=== PATIENT | male | born 1930 | race Caucasian/White ===

== ENCOUNTER 2019-12-04 21:58 | Observation (INO) | payer MEDICARE, OTHER ==
[~2019-12-04 21:58] MED LIST: fentaNYL 100 MCG/2 ML SDV ONE
[2019-12-04] MEDS ORDERED: Ondansetron 4 MG/2 ML SDV IVPUSH PRN (22:07)
[2019-12-04] MEDS ORDERED: fentaNYL 100 MCG/2 ML SDV IVPUSH ONE (22:07)
[2019-12-04] MEDS ORDERED: Sodium Chloride 0.9% 1,000 ML IV ONE (22:09)
[2019-12-04] MEDS ORDERED: Morphine 4 MG/ML VIAL ONE (22:22)
[2019-12-04 22:32] LABS: CHLORIDE,CL 107 mEq/L (98-106); SODIUM,NA 148 mEq/L (136-145)
[2019-12-04] MEDS ORDERED: Morphine 10 MG/ML Syringe IVPUSH ONE (22:33)
[2019-12-04] MEDS ORDERED: Iopamidol 755 Mg/ML 100 ML Bottle IVPUSH ONE (22:39)
[2019-12-04] MEDS: Lactated Ringers 1,000 ML IV SCH (22:51)
--- NOTE | 2019-12-04 23:34 | EDM.PDOC ---
ED HPI GENERAL MEDICAL PROBLEM - General Chief Complaint: General Stated Complaint: abd pain Time Seen by Provider: 12/04/19 22:17 Source of Information: Reports: Patient History Limitations: Reports: No Limitations - History of Present Illness INITIAL COMMENTS - FREE TEXT/NARRATIVE: Elliott is an 89 yo male who presents to the ED via private vehicle with concerns of abdominal pain. States he did have an episode of vomiting yesterday evening. States he felt fine afterwards. Woke up this morning with an episode of diarrhea and afterwards felt fine. States he was fine through out the day today and had supper around 1730. States he ate hashbrowns and gravy. [place] fine till around 1930 when the pain came on suddenly and has progressively worsened thru out the night. Has had episodes of emesis tonight as well. Admits the pain is severe and unable to get comfortable. Duration: Getting Worse Location: Reports: Abdomen Quality: Reports: Sharp, Stabbing Associated Symptoms: Reports: Nausea/Vomiting Middle Epigastric Pain Score (Numeric/FACES): 10 - Related Data Allergies Allergy/AdvReac Type Severity Reaction Status Date / Time No Known Allergies Allergy Verified 12/04/19 22:06 Home Meds: Home Meds Finasteride 5 mg PO DAILY 05/29/15 [History] Omeprazole 20 mg PO DAILY 05/29/15 [History] Pravastatin [Pravachol] 40 mg PO DAILY 05/29/15 [History] Tamsulosin HCl 0.4 mg PO DAILY 05/29/15 [History] Verapamil HCl [Verapamil ER] 120 mg PO BID 05/29/15 [History] Warfarin Sodium 5 mg PO DAILY 05/29/15 [History] Past Medical History HEENT History: Reports: Hard of Hearing Cardiovascular History: Reports: Afib, High Cholesterol, Hypertension Gastrointestinal History: Reports: GERD Genitourinary History: Reports: BPH, Renal Calculus Musculoskeletal History: Reports: Back Pain, Chronic Hematologic History: Reports: Iron Deficiency Oncologic (Cancer) History: Reports: Other (See Below) Other Oncologic History: tonsil CA - Past Surgical History HEENT Surgical History: Reports: Cataract Surgery, Tonsillectomy GI Surgical History: Reports: Hernia, Inguinal Musculoskeletal Surgical History: Reports: Other (See Below) Other Musculoskeletal Surgeries/Procedures:: back surgery Social & Family History - Family History Family Medical History: Noncontributory - Tobacco Use Smoking Status *Q: Never Smoker Second Hand Smoke Exposure: No - Alcohol Use Alcohol Use History: Yes Alcohol Use Frequency: Rarely, Socially - Recreational Drug Use Recreational Drug Use: No - Living Situation & Occupation Living situation: Reports: Occupation: Retired ED ROS GENERAL - Review of Systems Review Of Systems: See Below Constitutional: Reports: Chills. Denies: Fever, Weakness, Fatigue HEENT: Reports: No Symptoms Respiratory: Reports: No Symptoms Cardiovascular: Reports: No Symptoms GI/Abdominal: Reports: Abdominal Pain, Diarrhea, Nausea, Vomiting. Denies: Black Stool, Bloody Stool, Distension, Hematochezia, Melena, Stool Incontinence : Reports: No Symptoms Musculoskeletal: Reports: No Symptoms Skin: Reports: No Symptoms Neurological: Reports: No Symptoms Psychiatric: Reports: No Symptoms ED EXAM, GENERAL - Physical Exam Exam: See Below Exam Limited By: No Limitations General Appearance: Alert, Moderate Distress (severe pain upon arrival) Ears: Normal External Exam, Hearing Loss Nose: Normal Inspection, No Blood Throat/Mouth: Normal Inspection, Normal Lips, Normal Voice, No Airway Compromise Head: Atraumatic, Normocephalic Neck: Normal Inspection, Supple Respiratory/Chest: No Respiratory Distress, Lungs Clear, Normal Breath Sounds Cardiovascular: No Murmur, Irregularly Irregular. No: Tachycardia GI/Abdominal: Normal Bowel Sounds, No Mass, Guarding, Tender. No: Hernia, Hepatomegaly, Splenomegaly Extremities: Normal Inspection, No Pedal Edema Neurological: Alert, Oriented, Normal Cognition, No Motor/Sensory Deficits Skin Exam: Warm, Dry, Intact, Normal Color, No Rash Course - Vital Signs Last Recorded V/S: Last Vital Signs Temp 99.1 F 12/04/19 22:46 Pulse 62 12/04/19 22:46 Resp 22 H 12/04/19 22:46 BP 162/91 H 12/04/19 22:46 Pulse Ox 99 12/04/19 22:46 - Orders/Labs/Meds Orders: Active Orders 24 hr Category Date Time Status Abdomen Ltd [US] Stat Exams 12/04/19 23:26 Taken Abdomen Pelvis w Cont [CT] Stat Exams 12/04/19 22:10 Taken Lactated Ringers [Ringers, Lactated] 1,000 ml Med 12/04/19 22:45 Active IV ASDIRECTED Ondansetron [Zofran] Med 12/04/19 22:07 Active 4 mg IVPUSH Q6H PRN Medication Orders Lactated Ringer's (Ringers, Lactated) 1,000 mls @ 100 mls/hr IV ASDIRECTED RODDY Last Admin: 12/04/19 22:51 Dose: 150 mls/hr Documented by: JEANNE Ondansetron HCl (Zofran) 4 mg IVPUSH Q6H PRN PRN Reason: Abdominal Pain Last Admin: 12/04/19 22:21 Dose: 4 mg Documented by: JEANNE Labs: Laboratory Tests 12/04/19 12/04/19 12/04/19 Range/Units 22:17 22:17 22:17 WBC 12.8 H (5.0-10.0) 10^3/uL RBC 4.86 (4.50-6.00) 10^6/uL Hgb 14.3 (14.0-18.0) g/dL Hct 41.9 (40.0-54.0) % MCV 86.2 (82.0-94.0) fL MCH 29.4 (27.0-32.0) pg MCHC 34.1 (33.0-38.0) g/dL RDW Coeff of Brett 13.9 (11.0-15.0) % Plt Count 257 (150-400) 10^3/uL Neut % (Auto) 88.2 H (35-85) % Lymph % (Auto) 7.8 L (10-55) % [place] % (Auto) 2.5 (0-16) % Eos % (Auto) 1.3 (0-5) % Baso % (Auto) 0.2 (0-3) % Neut # (Auto) 11.27 H (1.80-7.00) 10^3/uL Lymph # (Auto) 1.00 (1.00-4.80) 10^3/uL [place] # (Auto) 0.32 (0.00-0.80) 10^3/uL Eos # (Auto) 0.17 (0.00-0.45) 10^3/uL Baso # (Auto) 0.02 10^3/uL PT (9.7-12.3) SEC INR (0.92-1.18) Sodium 148 H (136-145) mEq/L Potassium 3.8 (3.5-5.0) mEq/L Chloride 107 H (98-106) mEq/L Carbon Dioxide 32 (21-32) mmol/L BUN 20 H (7-18) mg/dL Creatinine 1.2 (0.7-1.3) mg/dL Est Cr Clr Drug Dosing TNP Estimated GFR (MDRD) 57 L (>=60) mL/min Glucose 144 H (75-99) mg/dL Lactic Acid 1.3 (0.4-2.0) mmol/L Calcium 8.8 (8.4-10.1) mg/dL Total Bilirubin 1.2 H (0.0-1.0) mg/dL AST 56 H (15-37) U/L ALT 41 (12-78) U/L Alkaline Phosphatase 63 (46-116) U/L C-Reactive Protein 0.7 (0.2-0.8) mg/dL Total Protein 6.7 (6.4-8.2) g/dL Albumin 3.8 (3.4-5.0) g/dL Amylase 32 (25-115) U/L Lipase 115 (73-393) U/L /12/16 Range/Units 22:17 WBC (5.0-10.0) 10^3/uL RBC (4.50-6.00) 10^6/uL Hgb (14.0-18.0) g/dL Hct (40.0-54.0) % MCV (82.0-94.0) fL MCH (27.0-32.0) pg MCHC (33.0-38.0) g/dL RDW Coeff of Brett (11.0-15.0) % Plt Count (150-400) 10^3/uL Neut % (Auto) (35-85) % Lymph % (Auto) (10-55) % [place] % (Auto) (0-16) % Eos % (Auto) (0-5) % Baso % (Auto) (0-3) % Neut # (Auto) (1.80-7.00) 10^3/uL Lymph # (Auto) (1.00-4.80) 10^3/uL [place] # (Auto) (0.00-0.80) 10^3/uL Eos # (Auto) (0.00-0.45) 10^3/uL Baso # (Auto) 10^3/uL PT 22.9 H (9.7-12.3) SEC INR 2.29 H (0.92-1.18) Sodium (136-145) mEq/L Potassium (3.5-5.0) mEq/L Chloride (98-106) mEq/L Carbon Dioxide (21-32) mmol/L BUN (7-18) mg/dL Creatinine (0.7-1.3) mg/dL Est Cr Clr Drug Dosing Estimated GFR (MDRD) (>=60) mL/min Glucose (75-99) mg/dL Lactic Acid (0.4-2.0) mmol/L Calcium (8.4-10.1) mg/dL Total Bilirubin (0.0-1.0) mg/dL AST (15-37) U/L ALT (12-78) U/L Alkaline Phosphatase (46-116) U/L C-Reactive Protein (0.2-0.8) mg/dL Total Protein (6.4-8.2) g/dL Albumin (3.4-5.0) g/dL Amylase (25-115) U/L Lipase (73-393) U/L Meds: Medications Generic Name Dose Route Start Last Admin Trade Name Freq PRN Reason Stop Dose Admin Lactated Ringer's 1,000 mls @ 100 mls/hr 12/04/19 22:45 12/04/19 22:51 Ringers, Lactated IV 150 mls/hr ASDIRECTED RODDY Administration Ondansetron HCl 4 mg 12/04/19 22:07 12/04/19 22:21 Zofran IVPUSH 4 mg Q6H PRN Administration Abdominal Pain Discontinued Medications Generic Name Dose Route Start Last Admin Trade Name Freq PRN Reason Stop Dose Admin Fentanyl Confirm 12/04/19 21:48 12/04/19 22:19 Sublimaze Administered 12/04/19 21:49 Not Given Dose 100 mcg .ROUTE .STK-MED ONE Fentanyl 50 mcg 12/04/19 22:07 12/04/19 22:10 Sublimaze IVPUSH 12/04/19 22:08 50 mcg ONETIME ONE Administration Sodium Chloride 1,000 mls @ 999 mls/hr 12/04/19 22:09 12/04/19 22:21 Normal Saline IV 12/04/19 23:09 999 mls/hr .BOLUS ONE Administration Iopamidol 100 ml 12/04/19 22:39 12/04/19 23:00 Isovue-370 (76%) IVPUSH 12/04/19 22:40 100 ml ONETIME ONE Administration Morphine Sulfate 4 mg 12/04/19 22:33 12/04/19 22:50 Morphine IVPUSH 12/04/19 22:34 4 mg ONETIME ONE Administration Morphine Sulfate Confirm 12/04/19 22:22 12/04/19 22:50 Morphine Administered 12/04/19 22:23 Not Given Dose 4 mg .ROUTE .STK-MED ONE Departure - Departure Time of Disposition: 00:35 Disposition: Refer to Observation Clinical Impression: Abdominal pain Qualifiers: Abdominal location: generalized Qualified Code(s): R10.84 - Generalized abdominal pain Cholelithiasis Qualifiers: Cholelithiasis location: gallbladder Cholecystitis presence: without cholecystitis Biliary obstruction: without biliary obstruction Qualified Code(s): K80.20 - Calculus of gallbladder without cholecystitis without obstruction - Discharge Information Sepsis Event Note (ED) - Evaluation Sepsis Screening Result: No Definite Risk - Focused Exam Vital Signs: Vital Signs Temp Pulse Resp BP Pulse Ox 12/04/19 22:46 99.1 F 62 22 H 162/91 H 99 - Problem List & Annotations (1) Abdominal pain SNOMED Code(s): 03251964 Code(s): R10.9 - UNSPECIFIED ABDOMINAL PAIN Status: Acute Current Visit: Yes Qualifiers: Abdominal location: generalized Qualified Code(s): R10.84 - Generalized abdominal pain (2) Cholelithiasis SNOMED Code(s): 675324181 Code(s): K80.20 - CALCULUS OF GALLBLADDER W/O CHOLECYSTITIS W/O OBSTRUCTION Status: Acute Current Visit: Yes Qualifiers: Cholelithiasis location: gallbladder Cholecystitis presence: without cholecystitis Biliary obstruction: without biliary obstruction Qualified Code(s): K80.20 - Calculus of gallbladder without cholecystitis without obstruction - My Orders Last 24 Hours: My Active Orders 12/04/19 22:07 Ondansetron [Zofran] 4 mg IVPUSH Q6H PRN 12/04/19 22:10 Abdomen Pelvis w Cont [CT] Stat 12/04/19 22:45 Lactated Ringers [Ringers, Lactated] 1,000 ml IV ASDIRECTED 12/04/19 23:26 Abdomen Ltd [US] Stat - Assessment/Plan Admission H&P: Please use this note as an admission H&P Last 24 Hours: My Active Orders 12/04/19 22:07 Ondansetron [Zofran] 4 mg IVPUSH Q6H PRN 12/04/19 22:10 Abdomen Pelvis w Cont [CT] Stat 12/04/19 22:45 Lactated Ringers [Ringers, Lactated] 1,000 ml IV ASDIRECTED 12/04/19 23:26 Abdomen Ltd [US] Stat Plan: Labs did show an slightly elevated CBC and AST. CT scan of the abdomen pelvis did not show any acute abdominal or pelvic process. Gallbladder distention without inflammatory changes. US completed and did show cholelithiasis without cholecystitis. Initially, Elliot was given 50mcg of Fentanyl upon arrival without any relief of discomfort. Morphine 4mg was given with significant improvement of discomfort. Discussed findings with Elliot and his family. D/t severity of discomfort upon arrival, will admit to observation status. Patient transferred to floor in satisfactory condition.
[2019-12-05] MEDS ORDERED: cefTRIAXone 1 GM Vial IVPUSH ONE (01:23)
[2019-12-05] MEDS ORDERED: Morphine 2 MG/ML SYRINGE IVPUSH PRN (01:23)
[2019-12-05] MEDS ORDERED: Acetaminophen 325 MG Tab PO PRN (01:23)
[2019-12-05] MEDS: Lactated Ringers 1,000 ML IV SCH (07:30)
[2019-12-05] MEDS ORDERED: Piperacillin/Tazobactam 3.375 GM in Sodium Chloride 0.9% 100 ML IV ONE (10:45)
[2019-12-05] MEDS ORDERED: DILTIAZEM 360 MG PO SCH (11:00)
[2019-12-05] MEDS ORDERED: METOPROLOL SUCCINATE 25 MG PO SCH (11:00)
[2019-12-05] MEDS ORDERED: Phytonadione 5 MG in Sodium Chloride 0.9% 50 ML IV ONE (12:21)
--- NOTE | 2019-12-05 13:48 | PCM.DCSUM1 ---
Discharge Summary - Hospital Course Free Text/Narrative:: Elliott is an 89 year old male who presented to the ER last evening with complaints of abdominal pain. He had similar pain the night prior, had an emesis and felt better. Awoke in the am, had one diarrhea stool but then felt good throughout the day. Ate supper around 1730 and developed pain at 1930 and wouldn't resolve. Had difficult time finding a position of comfort. Work up done in the ER showed a mildly elevated WBC of 12.8. Bilirubin 1.2. Creatinine normal. Liver enzymes relatively normal as well. Was given morphine in ER and got relief of the pain. CT scan was done and did show concerns with cholelithiasis, recommended gallbladder ultrasound which was also accomplished with same diagnosis. No specific evidence of cholecystitis. Patient was given Rocephin 1 gm IV and admitted for observation. Diagnosis: Stroke: No Modified Bradford Scale: No Symptoms at All Modified Mary Scale Score: 0 - Discharge Data Discharge Date: 12/05/19 Discharge Disposition: DC/Tfer to Acute Hospital 02 Condition: Fair - Referral to Home Health Primary Care Physician: Stu Philip PA-C - Patient Summary/Data Complications: none Hospital Course: Patient is pain free this am. Mildly tender to midepigastric area and right upper quadrant. Lab tests this am show elevation now in liver enzymes. WBC has increased to 24.7. Bilirubin has increased to 2.8. AST now 260, ALT 202. Alk phos remains normal yet at 69. CT scan and ultrasound reviewed. Do not show evidence of dilation of the common bile duct at this time. Temp this am 99.1. Heart rate elevated at 112, blood pressure stable. Has not yet had his am rate control medications for his a fib. Did discuss with Dr Swanson who advised to contact [facility] surgeon for possible cholecystectomy. Called [facility] and spoke with Dr. Segura. He recommended consulting with surgeon promotion specialist, Dr. Barton. She did feel patient was good candidate for surgery. Requested direct bilirubin to be done. This was accomplished, high at 1.8. Also informed of common duct size at 6 mm. She recommended patient will need MRCP. Will call back if able to acquire in spring. Received call from [place], unable to do MRCP today. With concerns of elevated WBC, worry that patient could become septic. Did contact [facility] all and spoke initially with Dr. Santiago, surgeon promotion specialist. He agreed patient will need ERCP, accepted patient for possible surgery but recommends speaking with hospitalist for admission. Spoke with Dr. Daniels, hospitalist promotion specialist. Status given. Advised has been given Zosyn. REcommended Vitamin K for Coumadin reversal. Will transfer [facility] to [facility]. Patient and family advised of risks and benefits of transfer. Risks of transfer include worsening status, vehicular crash or possible . Benefits of transfer include surgical care, definitive testing for this. Risks of non transfer include worsening status and potential . Benefits of non transfer include care close to home. Patient and family agreed to transfer. - Patient Instructions Diet: NPO Other/Special Instructions: Transfer to Dr. Daniels, [facility], by [facility] service - Discharge Plan *PRESCRIPTION DRUG MONITORING PROGRAM REVIEWED*: No *COPY OF PRESCRIPTION DRUG MONITORING REPORT IN PATIENT IZZY: No Home Medications: Home Meds Finasteride 5 mg PO DAILY 05/29/15 [History] Pravastatin [Pravachol] 40 mg PO BEDTIME 05/29/15 [History] Tamsulosin HCl 0.8 mg PO BEDTIME 05/29/15 [History] Warfarin Sodium 5 mg PO DAILY 05/29/15 [History] Diltiazem HCl [Diltiazem 24Hr ER] 360 mg PO DAILY 12/05/19 [History] Ferrous Sulfate [Iron] 650 mg PO BEDTIME 12/05/19 [History] Metoprolol Succinate [Toprol XL] 25 mg PO DAILY 12/05/19 [History] Pantoprazole Sodium [Protonix] 40 mg PO DAILY 12/05/19 [History] Forms: ED Department Discharge Referrals: Stu Philip PA-C [Primary Care Provider] - - Discharge Summary/Plan Comment DC Time >30 min.: No - General Info Date of Service: 12/05/19 Admission Dx/Problem (Free Text: cholelithiasis Functional Status: Reports: Pain Controlled, Ambulating. Denies: Tolerating Diet - Review of Systems General: Reports: Weakness, Fatigue, Malaise. Denies: Fever HEENT: Reports: No Symptoms Pulmonary: Denies: Shortness of Breath, Cough Cardiovascular: Denies: Chest Pain, Edema, Lightheadedness Gastrointestinal: Reports: Abdominal Pain. Denies: Nausea, Vomiting Genitourinary: Reports: No Symptoms Musculoskeletal: Reports: No Symptoms Skin: Reports: No Symptoms Neurological: Reports: No Symptoms - Patient Data Vitals - Most Recent: Last Vital Signs Temp 99.1 F 12/05/19 07:48 Pulse 118 H 12/05/19 11:03 Resp 18 12/05/19 07:48 BP 122/72 12/05/19 11:03 Pulse Ox 98 12/05/19 07:48 Weight - Most Recent: 193 lb 3.2 oz I&O - Last 24 hours: Intake & Output 12/04/19 12/05/19 12/05/19 22:59 06:59 14:59 Intake Total 1000 Balance 1000 Lab Results - Last 24 hrs: Laboratory Results - last 24 hr 12/04/19 12/04/19 12/04/19 Range/Units 22:17 22:17 22:17 WBC 12.8 H (5.0-10.0) 10^3/uL RBC 4.86 (4.50-6.00) 10^6/uL Hgb 14.3 (14.0-18.0) g/dL Hct 41.9 (40.0-54.0) % MCV 86.2 (82.0-94.0) fL MCH 29.4 (27.0-32.0) pg MCHC 34.1 (33.0-38.0) g/dL RDW Coeff of Brett 13.9 (11.0-15.0) % Plt Count 257 (150-400) 10^3/uL Neut % (Auto) 88.2 H (35-85) % Lymph % (Auto) 7.8 L (10-55) % [place] % (Auto) 2.5 (0-16) % Eos % (Auto) 1.3 (0-5) % Baso % (Auto) 0.2 (0-3) % Neut # (Auto) 11.27 H (1.80-7.00) 10^3/uL Lymph # (Auto) 1.00 (1.00-4.80) 10^3/uL [place] # (Auto) 0.32 (0.00-0.80) 10^3/uL Eos # (Auto) 0.17 (0.00-0.45) 10^3/uL Baso # (Auto) 0.02 10^3/uL Add Manual Diff Neutrophils % (Manual) (35-85) % Band Neutrophils % (0-5) % Lymphocytes % (Manual) (21-55) % Monocytes % (Manual) (2-12) % PT (9.7-12.3) SEC INR (0.92-1.18) Sodium 148 H (136-145) mEq/L Potassium 3.8 (3.5-5.0) mEq/L Chloride 107 H (98-106) mEq/L Carbon Dioxide 32 (21-32) mmol/L BUN 20 H (7-18) mg/dL Creatinine 1.2 (0.7-1.3) mg/dL Est Cr Clr Drug Dosing TNP Estimated GFR (MDRD) 57 L (>=60) mL/min Glucose 144 H (75-99) mg/dL Lactic Acid 1.3 (0.4-2.0) mmol/L Calcium 8.8 (8.4-10.1) mg/dL Total Bilirubin 1.2 H (0.0-1.0) mg/dL Direct Bilirubin (0.0-0.3) mg/dL AST 56 H (15-37) U/L ALT 41 (12-78) U/L Alkaline Phosphatase 63 (46-116) U/L C-Reactive Protein 0.7 (0.2-0.8) mg/dL Total Protein 6.7 (6.4-8.2) g/dL Albumin 3.8 (3.4-5.0) g/dL Amylase 32 (25-115) U/L Lipase 115 (73-393) U/L 12/04/19 12/05/19 12/05/19 Range/Units 22:17 07:00 07:15 WBC 24.7 H* (5.0-10.0) 10^3/uL RBC 4.33 L (4.50-6.00) 10^6/uL Hgb 12.9 L (14.0-18.0) g/dL Hct 37.7 L (40.0-54.0) % MCV 87.1 (82.0-94.0) fL MCH 29.8 (27.0-32.0) pg MCHC 34.2 (33.0-38.0) g/dL RDW Coeff of Brett 13.9 (11.0-15.0) % Plt Count 226 (150-400) 10^3/uL Neut % (Auto) (35-85) % Lymph % (Auto) (10-55) % [place] % (Auto) (0-16) % Eos % (Auto) (0-5) % Baso % (Auto) (0-3) % Neut # (Auto) (1.80-7.00) 10^3/uL Lymph # (Auto) (1.00-4.80) 10^3/uL [place] # (Auto) (0.00-0.80) 10^3/uL Eos # (Auto) (0.00-0.45) 10^3/uL Baso # (Auto) 10^3/uL Add Manual Diff Yes Neutrophils % (Manual) 75 (35-85) % Band Neutrophils % 19 H (0-5) % Lymphocytes % (Manual) 4 L (21-55) % Monocytes % (Manual) 2 (2-12) % PT 22.9 H (9.7-12.3) SEC INR 2.29 H (0.92-1.18) Sodium (136-145) mEq/L Potassium (3.5-5.0) mEq/L Chloride (98-106) mEq/L Carbon Dioxide (21-32) mmol/L BUN (7-18) mg/dL Creatinine (0.7-1.3) mg/dL Est Cr Clr Drug Dosing Estimated GFR (MDRD) (>=60) mL/min Glucose (75-99) mg/dL Lactic Acid (0.4-2.0) mmol/L Calcium (8.4-10.1) mg/dL Total Bilirubin (0.0-1.0) mg/dL Direct Bilirubin 1.8 H (0.0-0.3) mg/dL AST (15-37) U/L ALT (12-78) U/L Alkaline Phosphatase (46-116) U/L C-Reactive Protein (0.2-0.8) mg/dL Total Protein (6.4-8.2) g/dL Albumin (3.4-5.0) g/dL Amylase (25-115) U/L Lipase (73-393) U/L 12/05/19 Range/Units 07:15 WBC (5.0-10.0) 10^3/uL RBC (4.50-6.00) 10^6/uL Hgb (14.0-18.0) g/dL Hct (40.0-54.0) % MCV (82.0-94.0) fL MCH (27.0-32.0) pg MCHC (33.0-38.0) g/dL RDW Coeff of Brett (11.0-15.0) % Plt Count (150-400) 10^3/uL Neut % (Auto) (35-85) % Lymph % (Auto) (10-55) % [place] % (Auto) (0-16) % Eos % (Auto) (0-5) % Baso % (Auto) (0-3) % Neut # (Auto) (1.80-7.00) 10^3/uL Lymph # (Auto) (1.00-4.80) 10^3/uL [place] # (Auto) (0.00-0.80) 10^3/uL Eos # (Auto) (0.00-0.45) 10^3/uL Baso # (Auto) 10^3/uL Add Manual Diff Neutrophils % (Manual) (35-85) % Band Neutrophils % (0-5) % Lymphocytes % (Manual) (21-55) % Monocytes % (Manual) (2-12) % PT (9.7-12.3) SEC INR (0.92-1.18) Sodium 143 (136-145) mEq/L Potassium 3.6 (3.5-5.0) mEq/L Chloride 106 (98-106) mEq/L Carbon Dioxide 29 (21-32) mmol/L BUN 18 (7-18) mg/dL Creatinine 1.3 (0.7-1.3) mg/dL Est Cr Clr Drug Dosing 36.13 Estimated GFR (MDRD) 52 L (>=60) mL/min Glucose 142 H (75-99) mg/dL Lactic Acid (0.4-2.0) mmol/L Calcium 8.1 L (8.4-10.1) mg/dL Total Bilirubin 2.8 H (0.0-1.0) mg/dL Direct Bilirubin (0.0-0.3) mg/dL AST 260 H (15-37) U/L ALT 202 H (12-78) U/L Alkaline Phosphatase 69 (46-116) U/L C-Reactive Protein 3.9 H (0.2-0.8) mg/dL Total Protein 5.8 L (6.4-8.2) g/dL Albumin 3.2 L (3.4-5.0) g/dL Amylase (25-115) U/L Lipase (73-393) U/L Med Orders - Current: Current Medications Acetaminophen (Tylenol) 650 mg PO Q4H PRN PRN Reason: Pain (Mild 1-3)/fever Lactated Ringer's (Ringers, Lactated) 1,000 mls @ 100 mls/hr IV ASDIRECTED [facility] Last Admin: 12/05/19 07:30 Dose: 100 mls/hr Documented by: Metoprolol Succinate (Toprol Xl) 25 mg PO DAILY [facility] Last Admin: 12/05/19 11:03 Dose: 25 mg Documented by: Morphine Sulfate (Morphine) 2 mg IVPUSH Q2H PRN PRN Reason: Pain (severe 7-10) Diltiazem 24hr Er 360 Mg Cap Pt Own Med 0 mg PO DAILY [facility] Last Admin: 12/05/19 11:03 Dose: 1 mg Documented by: Ondansetron HCl (Zofran) 4 mg IVPUSH Q6H PRN PRN Reason: Abdominal Pain Last Admin: 12/04/19 22:21 Dose: 4 mg Documented by: Discontinued Medications Ceftriaxone Sodium (Rocephin) 1 gm IVPUSH ONETIME ONE Stop: 12/05/19 01:24 Last Admin: 12/05/19 02:16 Dose: 1 gm Documented by: Fentanyl (Sublimaze) Confirm Administered Dose 100 mcg .ROUTE .STK-MED ONE Stop: 12/04/19 21:49 Last Admin: 12/04/19 22:19 Dose: Not Given Documented by: Fentanyl (Sublimaze) 50 mcg IVPUSH ONETIME ONE Stop: 12/04/19 22:08 Last Admin: 12/04/19 22:10 Dose: 50 mcg Documented by: Sodium Chloride (Normal Saline) 1,000 mls @ 999 mls/hr IV .BOLUS ONE Stop: 12/04/19 23:09 Last Admin: 12/04/19 22:21 Dose: 999 mls/hr Documented by: Piperacillin Sod/Tazobactam (Sod 3.375 gm/ Sodium Chloride) 100 mls @ 200 mls/hr IV STAT ONE Stop: 12/05/19 11:14 Last Admin: 12/05/19 11:20 Dose: 200 mls/hr Documented by: Phytonadione 5 mg/ Sodium (Chloride) 50.5 mls @ 100 mls/hr IV NOW ONE Stop: 12/05/19 12:51 Last Admin: 12/05/19 12:32 Dose: Not Given Documented by: Iopamidol (Isovue-370 (76%)) 100 ml IVPUSH ONETIME ONE Stop: 12/04/19 22:40 Last Admin: 12/04/19 23:00 Dose: 100 ml Documented by: Morphine Sulfate (Morphine) 4 mg IVPUSH ONETIME ONE Stop: 12/04/19 22:34 Last Admin: 12/04/19 22:50 Dose: 4 mg Documented by: Morphine Sulfate (Morphine) Confirm Administered Dose 4 mg .ROUTE .STK-MED ONE Stop: 12/04/19 22:23 Last Admin: 12/04/19 22:50 Dose: Not Given Documented by: Phytonadione (Aquamephyton) 5 mg SUBCUT ONETIME ONE Stop: 12/05/19 12:46 Last Admin: 12/05/19 13:03 Dose: 5 mg Documented by: - Exam General: Reports: Alert, Oriented HEENT: Reports: Mucous Membr. Moist/[place]ck: Reports: Supple Lungs: Reports: Clear to Auscultation, Normal Respiratory Effort Cardiovascular: Reports: Irregular Rhythm GI/Abdominal Exam: Normal Bowel Sounds, Soft, Tender (midepigastric area/right upper quadrant) Skin: Reports: Warm, Dry Neurological: Reports: No New Focal Deficit
== END 2019-12-05 14:10 ==
LOC: CC.ED 21:58 → UNDOADMOB 12-05 00:23 → CC.MS 12-05 00:23
PROVIDERS: ADMIT Family Medicine; ATTEND Family Medicine
DX: K80.20 Calculus of gallbladder without cholecystitis without obstruction (principal); I10 Essential (primary) hypertension; I48.91 Unspecified atrial fibrillation; K21.9 Gastro-esophageal reflux disease without esophagitis; E78.00 Pure hypercholesterolemia, unspecified; Z79.01 Long term (current) use of anticoagulants; Z79.899 Other long term (current) drug therapy
CPT/HCPCS: 36415; 74177; 76705; 80053; 82150; 82248; 83605; 83690; 85025; 85610; 86140; 96374; 96375; 99285-25; A9270-GY; J0696; J2270; J2405; J2543; J3010; J3430; J7030; J7050; J7120; Q9967